=== PATIENT | female | born 1955 | race Two or more races ===

== ENCOUNTER → 2016-08-22 | Outpatient (CLI) | payer OTHER ==
[~2016-08-22] VITALS: Ht 149.9 cm; Wt 60.9 kg
[~2016-08-22] MED LIST: FAMO20 GT; LEVE100S GT; LEVO150 GT; ONDA4 GT; TEMA15CA GT; TOPI100 GT; [UNRECOGNIZED DRUG - CODE] GT
[2016-08-22 08:30] VITALS: BP 110/52
== END | disposition home or self-care (01) ==
LOC: HBOWC 07:48
PROVIDERS: ATTEND Emergency Medicine
DX: T81.89XD Other complications of procedures, not elsewhere classified, subsequent encounter (principal); L98.491 Non-pressure chronic ulcer of skin of other sites limited to breakdown of skin; E03.9 Hypothyroidism, unspecified; F17.210 Nicotine dependence, cigarettes, uncomplicated; Y83.8 Other surgical procedures as the cause of abnormal reaction of the patient, or of later complication, without mention of misadventure at the time of the procedure
CPT/HCPCS: 97597; G0463

== ENCOUNTER → 2016-09-03 | Outpatient (CLI) | payer OTHER ==
[~2016-09-03] MED LIST changes: +LIDOCAINE HCL 2% 5 ML JELLY TP ONE
[2016-09-03 09:41] VITALS: BP 120/67
== END | disposition home or self-care (01) ==
LOC: HBOWC 09:11
PROVIDERS: ATTEND Emergency Medicine
DX: T81.89XD Other complications of procedures, not elsewhere classified, subsequent encounter (principal); E03.9 Hypothyroidism, unspecified; F17.210 Nicotine dependence, cigarettes, uncomplicated; Y83.8 Other surgical procedures as the cause of abnormal reaction of the patient, or of later complication, without mention of misadventure at the time of the procedure